=== PATIENT | male | born 1980 | race Caucasian/White ===

== ENCOUNTER 2017-06-12 05:55 | Observation (INO) | payer BC, OTHER ==
[2017-06-12] VITALS (10 sets, daily range): BP systolic 102–115; BP diastolic 66–77; PULSE 76–103; TEMP 36.9–37.9; O2SAT 87–94; Ht 182.9 cm; Wt 109.6 kg
[~2017-06-12] VITALS: Ht 182.9 cm; Wt 109.6 kg
[2017-06-12] MEDS ORDERED: HYDROmorphone INJ 1 MG/ML SYR IV STA (06:10)
[2017-06-12] MEDS ORDERED: ONDANSETRON INJ 2 MG/ML 2 ML VIAL IV STA (06:10)
[2017-06-12] MEDS ORDERED: SODIUM CHLORIDE 0.9% 1000ML 1,000 ML IV ONE ×2 (06:15→07:00)
[2017-06-12] MEDS ORDERED: SULF500T35 PO (06:32)
--- NOTE | 2017-06-12 06:34 | EMERGENCY ROOM VISIT NOTE ---
History First contact with patient: 06:03 Chief Complaint: ABDOMINAL PAIN Stated Complaint: SEVERE ABDOMINAL PAIN History of Present Illness The patient is a 37 year old male who presents to the Emergency Room with complaints of severe lower abdominal pain that he rates a 9/10. The patient reports a history of ulcerative colitis that has been well controlled. He started with some bloating and gassiness 2 or 3 days ago, however now he is having much more distinct pain. The patient states that he was sleeping in his bed, and the pain awoke him from sleep. The discomfort was initially just above the bellybutton and is now much worse in the lower abdomen and right lower quadrant. He has never had abdominal surgery in the past. He does not report fever, chills, chest pain, chest tightness, shortness of breath, nausea, or vomiting. He has not had blood in the stool or diarrhea. He did have a colonoscopy at [facility] a few months ago that was normal. The patient does not identify aggravating or alleviating factors. He is not taking anything over -the-counter for his discomfort. Review of Systems More than 10 systems were reviewed and otherwise negative with the exception of history of present illness. Past Medical/Surgical History History of ulcerative colitis Family History No pertinent family history Social History Smoking Status: Never Smoker Marital Status: Housing Status: lives with family Occupation Status: employed Current/Historical Medications Scheduled Sulfasalazine (Sulfazine Ec), Unknown Dose PO DAILY Physical Exam Vital Signs Date Time Temp Pulse Resp B/P (MAP) Pulse Ox O2 Delivery O2 Flow Rate FiO2 06/12/17 06:43 79 06/12/17 06:38 80 24 122/74 100 Room Air 06/12/17 06:35 106/77 06/12/17 06:25 68 100 Room Air 06/12/17 05:59 36.6 65 18 104/71 94 Room Air Physical Exam VITALS: Vitals are noted on the nurse's note and reviewed by myself. Vital signs stable. GENERAL: Well-developed, well-nourished, white male who appears in moderate to severe discomfort secondary to his stated complaint. HEART: Regular rate and rhythm without murmurs gallops or rubs. LUNGS: Clear to auscultation bilaterally without wheezes, rales or rhonchi. No retractions or accessory muscle use. ABDOMEN: Positive normal bowel sounds x 4. Soft with mild diffuse abdominal tenderness that is somewhat worsened in the suprapubic and right lower quadrant. No CVA tenderness. MUSCULOSKELETAL: No muscle atrophy, erythema, or edema noted. Full range of motion in all extremities. NEURO: Patient was alert and oriented to person place and time. CN II through XII grossly intact. SKIN: The skin was without rashes, erythema, edema, or bruising. Capillary refill less than 2 seconds. Medical Decision & Procedures Laboratory Results 06/12/17 06:27 Red Blood Count 5.79, Mean Corpuscular Volume 76.2, Mean Corpuscular Hemoglobin 26.4, Mean Corpuscular Hemoglobin Concent 34.7, Mean Platelet Volume 9.3, Neutrophils (%) (Auto) 84.6, Lymphocytes (%) (Auto) 9.8, Monocytes (%) (Auto) 4.4, Eosinophils (%) (Auto) 0.8, Basophils (%) (Auto) 0.2, Neutrophils # (Auto) 7.49, Lymphocytes # (Auto) 0.87, Monocytes # (Auto) 0.39, Eosinophils # (Auto) 0.07, Basophils # (Auto) 0.02 06/12/17 06:27 Test 06/12/17 06:05 06/12/17 06:27 06/12/17 06:31 Urine Color DK YELLOW Urine Appearance CLEAR (CLEAR) Urine pH 7.0 (4.5-7.5) Urine Specific [place] 1.031 (1.000-1.030) Urine Protein 1+ (NEG) Urine Glucose (UA) NEG (NEG) Urine Ketones TRACE (NEG) Urine Occult Blood NEG (NEG) Urine Nitrite POS (NEG) Urine Bilirubin NEG (NEG) Urine Urobilinogen NEG (NEG) Urine Leukocyte Esterase NEG (NEG) Urine WBC (Auto) 1-5 /hpf (0-5) Urine RBC (Auto) 0-4 /hpf (0-4) Urine Hyaline Casts (Auto) 1-5 /lpf (0-5) Urine Epithelial Cells (Auto) >30 /lpf (0-5) Urine Bacteria (Auto) NEG (NEG) Urine Renal Epithelial Cells 0-5 /lpf (0-5) Urine Pathogenic Casts 0-3 GRANULAR CASTS /lpf (0) White Blood Count 8.86 K/uL (4.8-10.8) Red Blood Count 5.79 M/uL (4.7-6.1) Hemoglobin 15.3 g/dL (14.0-18.0) Hematocrit 44.1 % (42-52) Mean Corpuscular Volume 76.2 fL (80-100) Mean Corpuscular Hemoglobin 26.4 pg (25-34) Mean Corpuscular Hemoglobin Concent 34.7 g/dl (32-36) Platelet Count 262 K/uL (130-400) Mean Platelet Volume 9.3 fL (7.4-10.4) Neutrophils (%) (Auto) 84.6 % Lymphocytes (%) (Auto) 9.8 % Monocytes (%) (Auto) 4.4 % Eosinophils (%) (Auto) 0.8 % Basophils (%) (Auto) 0.2 % Neutrophils # (Auto) 7.49 K/uL (1.4-6.5) Lymphocytes # (Auto) 0.87 K/uL (1.2-3.4) Monocytes # (Auto) 0.39 K/uL (0.11-0.59) Eosinophils # (Auto) 0.07 K/uL (0-0.5) Basophils # (Auto) 0.02 K/uL (0-0.2) RDW Standard Deviation 41.4 fL (36.4-46.3) RDW Coefficient of Variation 15.1 % (11.5-14.5) Immature Granulocyte % (Auto) 0.2 % Immature Granulocyte # (Auto) 0.02 K/uL (0.00-0.02) Erythrocyte Sedimentation Rate 14 mm/hr (0-14) Anion Gap 6.0 mmol/L (3-11) Est Creatinine Clear Calc Drug Dose 88.8 ml/min Estimated GFR () 70.1 Estimated GFR (Non- 60.5 BUN/Creatinine Ratio 8.6 (10-20) Calcium Level 9.7 mg/dl (8.5-10.1) Total Bilirubin 1.2 mg/dl (0.2-1) Aspartate Amino Transf (AST/SGOT) 18 U/L (15-37) Alanine Aminotransferase (ALT/SGPT) 47 U/L (12-78) Alkaline Phosphatase 94 U/L (45-117) C-Reactive Protein 3.31 mg/dl (0-0.29) Total Protein 8.5 gm/dl (6.4-8.2) Albumin 4.7 gm/dl (3.4-5.0) Globulin 3.8 gm/dl (2.5-4.0) Albumin/Globulin Ratio 1.2 (0.9-2) Lipase 52 U/L (73-393) Bedside Lactic Acid Venous 2.24 mmol/L (0.90-1.70) Medications Administered Medications (Trade) Dose Ordered Sig/Hima Route Start Time Stop Time Status Last Admin Dose Admin Hydromorphone HCl (Dilaudid Inj) 1 mg NOW STAT IV 06/12/17 06:10 06/12/17 06:13 DC 06/12/17 06:33 1 MG Sodium Chloride 1,000 ml @ 999 mls/hr Q1H1M ONCE IV 06/12/17 06:15 06/12/17 07:15 06/12/17 06:31 999 MLS/HR Ondansetron HCl (Zofran Inj) 4 mg NOW STAT IV 06/12/17 06:10 06/12/17 06:13 DC 06/12/17 06:31 4 MG Sodium Chloride 1,000 ml @ 999 mls/hr Q1H1M ONCE IV 06/12/17 07:00 06/12/17 08:00 06/12/17 06:52 999 MLS/HR ED Course Physical exam and history were performed. Nursing notes, EMR, and Medication List were personally reviewed. Patient appears to have abdominal pain that was initially minimal 2 or 3 days ago but is now much more severe and primarily in the lower abdomen. The patient appears quite uncomfortable on examination. IV access was established and labs are obtained. He was hydrated with normal saline and given 1 mg IV Dilaudid and 4 mg IV Zofran for comfort. He does have a history of ulcerative colitis and because of this I did elect perform CT scan with IV and oral contrast. The patient remained in stable condition until the time of shift change. At this time complete blood work and CT scan is pending. The case was discussed with Indio Hunter PA-C. Please see Mr. Hunter's dictation for further patient course, plan, and disposition. The chart was completed utilizing [employer] Voice Recognition Software. Grammatical errors, random word insertions, pronoun errors, and incomplete sentences are an occasional consequence of this system due to software limitations, ambient noise, and hardware issues. Any formal questions or concerns about the content, text, or information contained within the body of this dictation should be directly addressed to the provider for clarification. . Medical Decision Differential diagnosis: Etiologies such as appendicitis, diverticulitis, PUD, biliary pathology, UTI, pancreatitis, obstruction, mesenteric ischemia, aortic pathology, infections, inflammatory bowel disease, renal colic, as well as others were entertained. Impression Primary Impression: Abdominal pain Departure Information Referrals No Doctor, Assigned (PCP) Patient Instructions My [facility]
[2017-06-12 06:41] LABS: BASO % 0.2 %; BASO ABS # 0.02 K/uL (0-0.2); EOS % 0.8 %; EOS ABS # 0.07 K/uL (0-0.5); HEMATOCRIT 44.1 % (42-52); HEMOGLOBIN 15.3 g/dL (14.0-18.0); IG# 0.02 K/uL (0.00-0.02); LYMPH % 9.8 %; LYMPH ABS # 0.87 K/uL (1.2-3.4); MEAN CELL VOLUME 76.2 fL (80-100); MEAN CORPUSCULAR HEMOGLOBIN 26.4 pg (25-34); MEAN CORPUSCULAR HGB CONC 34.7 g/dl (32-36); MEAN PLATELET VOLUME 9.3 fL (7.4-10.4); MONO % 4.4 %; MONO ABS # 0.39 K/uL (0.11-0.59); NEUT % 84.6 %; NEUT ABS # 7.49 K/uL (1.4-6.5); PLATELET COUNT 262 K/uL (130-400); RED CELL DISTRIBUTION WIDTH CV 15.1 % (11.5-14.5); RED CELL DISTRIBUTION WIDTH SD 41.4 fL (36.4-46.3); WHITE BLOOD COUNT 8.86 K/uL (4.8-10.8)
[2017-06-12 06:59] LABS: ALBUMIN 4.7 gm/dl (3.4-5.0); CALCIUM 9.7 mg/dl (8.5-10.1); CREATININE 1.47 mg/dl (0.60-1.40); POTASSIUM 4.3 mmol/L (3.5-5.1)
[2017-06-12 07:02] LABS: TOTAL PROTEIN 8.5 gm/dl (6.4-8.2)
--- NOTE | 2017-06-12 09:17 | DIAGNOSTIC IMAGING REPORT ---
ABD/PELVIS IV AND ORAL CONT CT DOSE: 805.39 mGy.cm HISTORY: Pain abd pain. hx of ulcerative colitis TECHNIQUE: Multiaxial CT images of the abdomen and pelvis were performed following the use of intravenous and oral contrast. A dose lowering technique was utilized adhering to the principles of ALARA. COMPARISON STUDY: 08/24/2013 FINDINGS: Lung bases show minimal dependent basilar atelectasis. Liver spleen and pancreas appear unremarkable. Gallbladder is negative for distention. Kidneys enhance uniformly. Bowel pattern is nonobstructive. Medial and slightly inferior to the cecum is a distended appendix at 1.5 cm. There is moderate periappendiceal infiltrative change. Several small reactive regional nodes are present. There is no evidence for abscess or collection. This appearance is consistent with that of acute appendicitis. Bladder is midline. There are no contained bladder calcifications. There are several scattered sigmoid diverticuli. There is no evidence for acute diverticulitis. There is no free fluid within the pelvic cul-de-sac. IMPRESSION: 1. Acute appendicitis. 2. Distended appendix at 1.5 cm with moderate periappendiceal infiltrative change. 3. No evidence for abscess or collection. 4. Scattered colonic diverticuli with no evidence for acute diverticulitis. The above report was generated using voice recognition software. It may contain grammatical, syntax or spelling errors. Electronically signed by: Krish Varner M.D. 06/12/2017 9:16 AM Dictated Date/Time: 06/12/2017 9:06 AM
[2017-06-12] MEDS ORDERED: LACTATED RINGER'S 1000ML 1,000 ML IV SCH (09:45)
--- NOTE | 2017-06-12 09:55 | History and Physical ---
History & Physical Date & Time of Service: June 12, 2017 at 09:37 Chief Complaint: Severe Abdominal Pain Primary Care Physician: Philippe Vigil DO History of Present Illness 37 y/o male with upper abdominal pain, bloating after eating. Last night increased and localized to RLQ with nausea and chills. Has history of ulcerative colitis. Had 9mm appendix on CT for weight loss in 2013; f/u ultrasound was normal. UC has been well controlled on sulfasalazine. Has not had anything to eat or drink since yesterday. Past Medical/Surgical History Medical history: Ulcerative Colitis Surgical history: wisdom teeth Social History Smoking Status: Never Smoker Marital Status: Occupational Status: employed Allergies Coded Allergies: No Known Allergies (Unverified , 06/12/17) Home Medications Scheduled Sulfasalazine (Sulfazine Ec), Unknown Dose PO DAILY Review of Systems Constitutional: + fever, + chills Respiratory: + cough (recent URI/sinusitis treated with amoxil) Cardiovascular: No chest pain, No edema Abdomen: + pain, + nausea, No vomiting Physical Exam Vital Signs Date Time Temp Pulse Resp B/P (MAP) Pulse Ox O2 Delivery O2 Flow Rate FiO2 06/12/17 09:05 103 20 127/81 96 Room Air 06/12/17 07:16 87 20 116/73 95 Room Air 06/12/17 06:43 79 06/12/17 06:38 80 24 122/74 100 Room Air 06/12/17 06:35 106/77 06/12/17 06:25 68 100 Room Air 06/12/17 05:59 36.6 65 18 104/71 94 Room Air General Appearance: WD/WN, + mild distress ENT: normal ENT inspection Neck: supple Respiratory/Chest: lungs clear, normal breath sounds Cardiovascular: regular rate, rhythm, no edema Abdomen/GI: soft, + tenderness (localized RLQ), + guarding Extremities/Musculoskelatal: normal inspection Neurologic/Psych: alert, normal mood/affect, normal reflexes Diagnostics Laboratory Results Results Past 24 Hours Test 06/12/17 06:05 06/12/17 06:27 06/12/17 06:31 Range/Units Urine Color DK YELLOW Urine Appearance CLEAR CLEAR Urine pH 7.0 4.5-7.5 Urine Specific [place] 1.031 1.000-1.030 Urine Protein 1+ NEG Urine Glucose (UA) NEG NEG Urine Ketones TRACE NEG Urine Occult Blood NEG NEG Urine Nitrite POS NEG Urine Bilirubin NEG NEG Urine Urobilinogen NEG NEG Urine Leukocyte Esterase NEG NEG Urine WBC (Auto) 1-5 0-5 /hpf Urine RBC (Auto) 0-4 0-4 /hpf Urine Hyaline Casts (Auto) 1-5 0-5 /lpf Urine Epithelial Cells (Auto) >30 0-5 /lpf Urine Bacteria (Auto) NEG NEG Urine Renal Epithelial Cells 0-5 0-5 /lpf Urine Pathogenic Casts 0-3 GRANULAR CASTS 0 /lpf White Blood Count 8.86 4.8-10.8 K/uL Red Blood Count 5.79 4.7-6.1 M/uL Hemoglobin 15.3 14.0-18.0 g/dL Hematocrit 44.1 42-52 % Mean Corpuscular Volume 76.2 80-100 fL Mean Corpuscular Hemoglobin 26.4 25-34 pg Mean Corpuscular Hemoglobin Concent 34.7 32-36 g/dl Platelet Count 262 130-400 K/uL Mean Platelet Volume 9.3 7.4-10.4 fL Neutrophils (%) (Auto) 84.6 % Lymphocytes (%) (Auto) 9.8 % Monocytes (%) (Auto) 4.4 % Eosinophils (%) (Auto) 0.8 % Basophils (%) (Auto) 0.2 % Neutrophils # (Auto) 7.49 1.4-6.5 K/uL Lymphocytes # (Auto) 0.87 1.2-3.4 K/uL Monocytes # (Auto) 0.39 0.11-0.59 K/uL Eosinophils # (Auto) 0.07 0-0.5 K/uL Basophils # (Auto) 0.02 0-0.2 K/uL RDW Standard Deviation 41.4 36.4-46.3 fL RDW Coefficient of Variation 15.1 11.5-14.5 % Immature Granulocyte % (Auto) 0.2 % Immature Granulocyte # (Auto) 0.02 0.00-0.02 K/uL Erythrocyte Sedimentation Rate 14 0-14 mm/hr Sodium Level 135 136-145 mmol/L Potassium Level 4.3 3.5-5.1 mmol/L Chloride Level 104 98-107 mmol/L Carbon Dioxide Level 25 21-32 mmol/L Anion Gap 6.0 3-11 mmol/L Blood Urea Nitrogen 13 7-18 mg/dl Creatinine 1.47 0.60-1.40 mg/dl Est Creatinine Clear Calc Drug Dose 88.8 ml/min Estimated GFR () 70.1 Estimated GFR (Non- 60.5 BUN/Creatinine Ratio 8.6 10-20 Random Glucose 164 70-99 mg/dl Calcium Level 9.7 8.5-10.1 mg/dl Total Bilirubin 1.2 0.2-1 mg/dl Aspartate Amino Transf (AST/SGOT) 18 15-37 U/L Alanine Aminotransferase (ALT/SGPT) 47 12-78 U/L Alkaline Phosphatase 94 45-117 U/L C-Reactive Protein 3.31 0-0.29 mg/dl Total Protein 8.5 6.4-8.2 gm/dl Albumin 4.7 3.4-5.0 gm/dl Globulin 3.8 2.5-4.0 gm/dl Albumin/Globulin Ratio 1.2 0.9-2 Lipase 52 73-393 U/L Bedside Lactic Acid Venous 2.24 0.90-1.70 mmol/L Diagnostic Radiology ABD/PELVIS IV AND ORAL CONT CT DOSE: 805.39 mGy.cm HISTORY: Pain abd pain. hx of ulcerative colitis TECHNIQUE: Multiaxial CT images of the abdomen and pelvis were performed following the use of intravenous and oral contrast. A dose lowering technique was utilized adhering to the principles of ALARA. COMPARISON STUDY: 08/24/2013 FINDINGS: Lung bases show minimal dependent basilar atelectasis. Liver spleen and pancreas appear unremarkable. Gallbladder is negative for distention. Kidneys enhance uniformly. Bowel pattern is nonobstructive. Medial and slightly inferior to the cecum is a distended appendix at 1.5 cm. There is moderate periappendiceal infiltrative change. Several small reactive regional nodes are present. There is no evidence for abscess or collection. This appearance is consistent with that of acute appendicitis. Bladder is midline. There are no contained bladder calcifications. There are several scattered sigmoid diverticuli. There is no evidence for acute diverticulitis. There is no free fluid within the pelvic cul-de-sac. IMPRESSION: 1. Acute appendicitis. 2. Distended appendix at 1.5 cm with moderate periappendiceal infiltrative change. 3. No evidence for abscess or collection. 4. Scattered colonic diverticuli with no evidence for acute diverticulitis. The above report was generated using voice recognition software. It may contain grammatical, syntax or spelling errors. Electronically signed by: Krish Varner M.D. 06/12/2017 9:16 AM Dictated Date/Time: 06/12/2017 9:06 AM Impression Assessment and Plan Acute appendicitis Laparoscopic appendectomy this morning by Dr. Rodríguez. OR is available now , antibiotics will be given in the OR. Procedure and recovery were discussed including risks of bleeding, infection or abscess, injury to other structures and the possibility of converting to an open procedure.
--- NOTE | 2017-06-12 09:57 | EMERGENCY ROOM VISIT NOTE ---
ED Visit Note First contact with patient: 07:06 Patient case was signed out to me at 0700 hrs. on June 12, 2017 by TINY Jones pending CT scan and some of the metabolic labs. No concerning leukocytosis noted. Hypokalemia at 135. Creatinine high at 1.4. PSC lactic 2.24. Bili high at 1.2. Lipase low. Urine does reveal positive nitrites. He has had increased urinary frequency. Abdomen pelvis CT reveal acute appendicitis. I did discuss this with the on-call general surgery team. They will come to evaluate the patient.
[2017-06-12] MEDS ORDERED: PROPOFOL IV EMULSION 10 MG/ML 20 ML VIAL ONE (09:59)
[2017-06-12] MEDS ORDERED: ROCURONIUM BROMIDE 10 MG/ML 5 ML VIAL ONE (09:59)
[2017-06-12] MEDS ORDERED: MIDAZOLAM HCL 1 MG/ML 2ML VIAL ONE (09:59)
[2017-06-12] MEDS ORDERED: FENTANYL CITRATE INJ 50 MCG/1 ML 2 ML VIAL ONE (10:00)
--- NOTE | 2017-06-12 10:01 | History & Physical Bridge Note ---
H&P Re-Evaluation Bridge Note: I have examined the patient, reviewed the History & Physical and in the interval since the performance of the History & Physical I have noted the following changes of clinical significance: No changes notedpt examined SO at bedside, gets routine colonoscopy last one [place] 3 months ago neg for colitis, rebound and tenderness rlq loc acute appendicitis, r and c explainred to pt rec lap appy possible open all questions answered
[2017-06-12] MEDS ORDERED: LIDOCAINE/EPINEPHRINE 1% 20 ML VIAL ONE ×2 (10:10→10:26)
[2017-06-12] MEDS ORDERED: PHENYLEPHRINE 100MCG/ML 5ML SYR IV PRN (10:15)
[2017-06-12] MEDS ORDERED: EpHEDrine SULFATE INJ 50 MG/ML AMP IV PRN (10:15)
[2017-06-12] MEDS ORDERED: PROMETHAZINE HCL INJ 12.5 MG in SODIUM CHLORIDE 0.9% 50ML 50 ML IV PRN (10:15)
[2017-06-12] MEDS ORDERED: ONDANSETRON INJ 2 MG/ML 2 ML VIAL IV PRN ×2 (10:15→11:45)
[2017-06-12] MEDS ORDERED: LABETALOL HCL IV 5 MG/ML 20ML IV PRN (10:15)
[2017-06-12] MEDS ORDERED: ATROPINE SULFATE 0.1 MG/ML 5ML SYR IV PRN (10:15)
[2017-06-12] MEDS ORDERED: HYDROmorphone INJ 2 MG/ML SYR/VIAL IV PRN (10:15)
[2017-06-12] MEDS ORDERED: HYDROmorphone INJ 2 MG/ML SYR/VIAL ONE (10:52)
--- NOTE | 2017-06-12 11:31 | [facility] Post Operative Brief Note ---
Immediate Operative Summary Operative Date June 12, 2017. Pre-Operative Diagnosis Acute Appendicitis Post-Operative Diagnosis acute purulent appendicitis Procedure(s) Performed Laparoscopic Appendectomy Surgeon Dr. Fletcher Rodríguez Shotblast Operator Surgeon(s) Wes Farmer PA-C Estimated Blood Loss 8cc Findings See Below acute non grossly ruptured appendicitis Specimens PERMANENT: A.) Appendix and contents CULTURE: 1.) Drains 19 kaden per stab
[2017-06-12] MEDS ORDERED: MoRPHine SULFATE 4 MG/ML 1 ML CARP\\VIAL IV PRN (11:45)
[2017-06-12] MEDS ORDERED: ACETAMINOPHEN 325 MG TAB PO PRN (11:45)
[2017-06-12] MEDS ORDERED: OXYCODONE/ACETAMINOPHEN 5-325 TAB PO PRN (11:45)
[2017-06-12] MEDS ORDERED: DEXAMETHASONE SOD INJ 4 MG/ML VIAL ONE (12:11)
[2017-06-12] MEDS ORDERED: ONDANSETRON INJ 2 MG/ML 2 ML VIAL ONE (12:11)
[2017-06-12] MEDS: FENTANYL CITRATE INJ 50 MCG/1 ML 2 ML VIAL IV PRN ×2 (12:24→12:32)
--- NOTE | 2017-06-12 12:48 | Anesthesiology Progress Note ---
Anesthesia Post Op Note Date & Time June 12, 2017 at 12:48 Vital Signs Pain Intensity: 6.0 Vital Signs Past 12 Hours Date Time Temp Pulse Resp B/P (MAP) Pulse Ox O2 Delivery O2 Flow Rate FiO2 06/12/17 12:36 131/75 06/12/17 12:34 106 28 06/12/17 12:34 105 28 94 06/12/17 12:31 135/70 06/12/17 12:29 106 25 06/12/17 12:29 106 25 95 06/12/17 12:26 113/78 06/12/17 12:24 105 26 93 06/12/17 12:24 106 26 06/12/17 12:23 103 22 94 06/12/17 12:23 105 22 06/12/17 12:21 127/79 06/12/17 12:18 106 20 100 06/12/17 12:18 106 20 06/12/17 12:16 124/84 06/12/17 12:13 107 26 06/12/17 12:13 106 26 94 06/12/17 12:11 122/72 06/12/17 12:08 103 20 92 06/12/17 12:08 104 20 06/12/17 12:06 116/82 06/12/17 12:03 37 102 22 141/91 92 Oxymask 15 06/12/17 12:03 106 29 06/12/17 12:03 108 29 141/91 89 06/12/17 09:45 106 20 121/83 99 Room Air 06/12/17 09:05 103 20 127/81 96 Room Air 06/12/17 07:16 87 20 116/73 95 Room Air 06/12/17 06:43 79 06/12/17 06:38 80 24 122/74 100 Room Air 06/12/17 06:35 106/77 06/12/17 06:25 68 100 Room Air 06/12/17 05:59 36.6 65 18 104/71 94 Room Air Notes Mental Status: alert / awake / arousable, participated in evaluation Pt Amnestic to Procedure: Yes Nausea / Vomiting: adequately controlled Pain: adequately controlled Airway Patency, RR, SpO2: stable & adequate BP & HR: stable & adequate Hydration State: stable & adequate Anesthetic Complications: no major complications apparent
[2017-06-12] MEDS ORDERED: CEFOXITIN IV 2,000 MG in DEXTROSE 5% 50ML 50 ML IV ONE (13:00)
--- NOTE | 2017-06-12 13:11 | OPERATIVE REPORT ---
DATE OF OPERATION: 06/12/2017 SURGEON: Fletcher Rodríguez MD COMPUTER SECURITY SPECIALIST: Wes Farmer PA-C. PREOPERATIVE DIAGNOSIS: Acute appendicitis. POSTOPERATIVE DIAGNOSIS: Acute nonruptured grossly appendicitis with purulent peritonitis. PROCEDURE: Laparoscopic appendectomy. SUMMARY: The patient was brought into the operating room theater under general anesthesia, the patient's abdomen was prepped with Betadine solution and properly draped. Systemic antibiotics had been given. We made a small transverse incision about an inch above the umbilicus. The patient had a small umbilical hernia at the umbilical tissue. We left that alone. We stayed above it. CO2 was insufflated after the Veress needle followed by 5 mm trocar. Point of entry inspected and no injury identified. At this point, we placed the patient in left lateral position. We placed the camera locked into the abdomen, right lower quadrant and found what appeared to be some purulent fluid in the right gutter area. At this point under direct visualization, a 5 mm trocar was placed with direct visualization with preemptive analgesia 1% Xylocaine with epinephrine. We then placed a lighten strap and aspirated the peritoneal fluid. The purulent was then sent for cultures and sensitivity. At this point, we could see inflammatory changes down in the right lower quadrant distal to that appeared to have some fatty tissue adherent to the abdominal wall. I could not identify the appendix at this point. Under direct visualization then we changed the 5 mm epigastric port to an 11 mm by enlarging the peritoneal opening and then placed a 5 mm trocar, fpc between the symphysis pubis and the umbilical area since the patient was quite obese and that would give us a better view of the area. Once we had done this, we then manipulated and were able to identify the tip of the appendix, which markedly dilated and inflamed, held it up on the mesentery, which was grossly inflamed, did not see any tonia rupture of the appendix, although it was quite inflamed. We worked our way down to the base of the appendix used 5 mm clips to identify and clipped the artery and some other fatty tissue around the area. Once we were at the base of the appendix. We had created a window right at the cecal area. I used a purple load and we were able to elevate the appendix off the cecum. There was no gross appendiceal tissue left behind. The mesoappendix is still intact partially. We then clipped with 10 mm clips and divided and moved onto, we were able to completely taken off. The mesoappendix was checked for hemostasis. We cauterized what we saw right at the base paying attention not to go beyond that. The appendix was then placed in an Endopouch and taken out through the umbilical port. We had to enlarge the incision to get the appendix out, which was markedly inflamed and dilated. At this point, a 10 mm trocar was placed in the area again. We suctioned out the right gutter above the liver and all the way down the pelvic area multiple times using about 2 liters of solution. I elected to drain the area by placing a Chilo drain that we brought in towards the lower midline trocar site and placed in the right gutter all the way down towards the pelvic area under direct visualization. At this point, individual trocars removed and the last umbilical trocar removed. The drain came out through the right upper quadrant port site, attached to skin edge with 2-0 silk suture. The abdomen was checked for hemostasis and appeared satisfactory. Prior to closing and removing the trocars, we closed the umbilical trocar with [id number] nylon x2. Subcutaneous tissue brought back together with Dexon. Steri-Strips applied. The procedure was tolerated well by the patient. Estimated blood loss approximately 8-10 mL The patient was taken to recovery room in good condition. I attest to the content of the Intraoperative Record and any orders documented therein. Any exception s are noted below.
[2017-06-12] MEDS ORDERED: PIPERACILL/TAZOBAC CONSULT ACTIVE PRN (14:00)
[2017-06-12] MEDS ORDERED: PIPERACILL/TAZOBAC IV 3.375 GM in DEXTROSE 5% 100ML 100 ML IV SCH (14:00)
[2017-06-12] MEDS: LACTATED RINGER'S 1000ML 1,000 ML IV SCH ×3 (14:03→22:23)
[2017-06-12] MEDS: PIPERACILL/TAZOBAC IV 3.375 GM in DEXTROSE 5% 100ML 100 ML IV SCH (18:03)
[2017-06-12] MEDS: OXYCODONE/ACETAMINOPHEN 5-325 TAB PO PRN ×2 (19:04→23:37)
[2017-06-12] MEDS ORDERED: IV FLUIDS COMPLETED PRN (19:15)
[2017-06-13] MEDS: PIPERACILL/TAZOBAC IV 3.375 GM in DEXTROSE 5% 100ML 100 ML IV SCH ×2 (02:12→09:39)
[2017-06-13 03:14] VITALS: BP 117/77; PULSE 64; TEMP 36.8; O2SAT 95
[2017-06-13] MEDS: LACTATED RINGER'S 1000ML 1,000 ML IV SCH (04:29)
[2017-06-13] MEDS: OXYCODONE/ACETAMINOPHEN 5-325 TAB PO PRN (05:33)
[2017-06-13 05:54] VITALS: O2SAT 91
[2017-06-13 06:26] LABS: EOS % 0.5 %; EOS ABS # 0.03 K/uL (0-0.5); HEMATOCRIT 35.8 % (42-52); IG# 0.01 K/uL (0.00-0.02); LYMPH % 13.9 %; LYMPH ABS # 0.92 K/uL (1.2-3.4); MEAN CELL VOLUME 77.5 fL (80-100); MEAN CORPUSCULAR HGB CONC 33.5 g/dl (32-36); MEAN PLATELET VOLUME 8.8 fL (7.4-10.4); MONO % 8.9 %; MONO ABS # 0.59 K/uL (0.11-0.59); NEUT % 76.5 %; NEUT ABS # 5.06 K/uL (1.4-6.5); PLATELET COUNT 191 K/uL (130-400); RED CELL DISTRIBUTION WIDTH CV 15.4 % (11.5-14.5); RED CELL DISTRIBUTION WIDTH SD 43.6 fL (36.4-46.3); WHITE BLOOD COUNT 6.61 K/uL (4.8-10.8)
--- NOTE | 2017-06-13 06:32 | Discharge Instructions ---
Discharge Instructions Date of Service June 13, 2017. Admission Reason for Admission: Severe Abdominal Pain Discharge Discharge Diagnosis / Problem: Acute Appendicitis Discharge Goals Goal(s): Decrease discomfort, Improve function Activity Recommendations Activity Limitations: as noted below Lifting Limitations: no more than 10 pounds, until after follow-up appointment Exercise/Sports Limitations: until after follow-up appointment Shower/Bathe: tomorrow Driving or Machine Use: resume 3 days after discharge (Please do not drive while using narcotic pain medication) . Instructions / Follow-Up Instructions / Follow-Up You have been prescribed Percocet to take as needed for pain relief. Please use as directed. Follow-up with Dr. Rodríguez office next week for drain removal. Please contact our office at to schedule. Please contact our office with any further questions or concerns. [facility]. [address] [place] [address]. Current Hospital Diet Patient's current hospital diet: Full Liquid Diet Discharge Diet Recommended Diet: Regular Diet Procedures Procedures Performed: Laparoscopic Appendectomy Pending Studies Studies pending at discharge: yes List of pending studies: pathology Medical Emergencies . Who to Call and When: Medical Emergencies: If at any time you feel your situation is an emergency, please call 911 immediately. . Non-Emergent Contact Non-Emergency issues call your: Primary Care Provider, Surgeon Call Non-Emergent contact if: you have a fever, temperature is above 101.5, your pain is not controlled, your pain is worsening, wound has increased drainage, wound has increased redness . "Provider Documentation" section prepared by Philippe Green. . [place] Drug Monitoring Program Search Results: patient reviewed within database, no issues identified
[2017-06-13 06:33] LABS: INR 1.1 (0.9-1.1)
[2017-06-13] MEDS ORDERED: OXYC-57 PO (06:34)
[2017-06-13 07:00] LABS: CALCIUM 8.6 mg/dl (8.5-10.1); CREATININE 1.31 mg/dl (0.60-1.40); POTASSIUM 4.1 mmol/L (3.5-5.1)
[2017-06-13] MEDS ORDERED: HEPARIN SOD 5000 UNIT/0.5 ML CARP SQ SCH (07:00)
--- NOTE | 2017-06-13 07:01 | SURGERY PROGRESS NOTE ---
DATE: 06/13/2017 Juaquin is first postoperative day status post laparoscopic appendectomy. He is alert, coherent, and in no distress. He has minimal discomfort, but he has been taking analgesics every 6 hours. Intraoperative findings were discussed with the patient. His last vitals showed a temperature of 36.8, pulse 64, respirations 20, blood pressure 117/77, O2 sats 95 on 1 L. The lab is pending this morning. His I and O, he had 1225; Antonio-Scott drain uses about 130 and serous, slightly sanguineous. His abdomen is soft, distended but nontender. At this point, we will cut his IV fluids, encourage ambulation and subQ heparin and reevaluate him later today. If he is tolerating the diet and his pain is under control, then we were able to discharge him. I will send him home on Augmentin for approximately another 5 days and take the Chilo drain out in the office.
[2017-06-13 07:12] VITALS: BP 121/81; PULSE 65; TEMP 37; O2SAT 92
[2017-06-13] MEDS ORDERED: AMOX875T PO (07:40)
[2017-06-13 10:41] VITALS: BP 137/96; PULSE 76; TEMP 37.2; O2SAT 92
[2017-06-13 12:13] VITALS: BP 137/96; PULSE 76; TEMP 37.2; O2SAT 92
--- NOTE | 2017-06-13 19:00 | Discharge Summary ---
Discharge Summary Date of Service June 13, 2017. Admission Date/Reason June 12, 2017 at 11:41 Severe Abdominal Pain. Discharge Date/Disposition June 13, 2017 Home Diagnosis Principal Diagnosis: Acute Appendicitis Procedure(s) Performed Laparoscopic Appendectomy Medication Reconciliation Augmentin 875mg-125mg 1 Tablet PO BID x 5 days. Disp: 10 Tablets. Percocet 5mg/325mg 1-2 Tablets PO Q4H PRN for pain x 3 days. Disp: 30 Tablets. Admission Physical Exam As per Admitting History & Physical. Hospital Course 06/12/17: Patient is a 37M who developed abdominal pain and bloating after eating. Last night his pain inceased and localized to the RLQ with associated nausea and chills. Pt has a Hx of Ulcerative colitis which is currently well controlled on sulfasalazine. He has not had anything to eat or drink since yesterday. CT in the ED showed a 1.5 cm distended appendix with associated inflammatory changes suggesting acute appendicitis. At this time it was decided to take the patient to the OR this morning for Laparoscopic appendectomy. Risks , benefits alternatives to the procedure were discussed, consents signed. Pre- op antibiotics given. The procedure was performed successfully without complications. The appendix was very inflamed and dilated. A kaden drain was placed in the OR. The patient was then sent to the PACU for post-op recovery and then admitted to med/surg for post-op care. 06/13/17: POD #1. Doing well, minimal discomfort. Abdomen soft, distended but non- tender. MARCIA draining approx 130ml, serosang. Will cut IV fluids at this time. Encourage ambulation and continue subQ heparin. Diet was advanced throughout the day and patient was discharged in the afternoon once he was tolerating some foods. Drain left in place and patient will come into the general surgery clinic to have it taken out. Patient was given instructions on wound care, return precautions and limitations. He was sent home with a prescription for Percocet to take as needed for pain and a 5 day course of Augmentin for any residual infection. The patient was given instructions to follow-up with Dr. Rodríguez in the general surgery clinic. Discharge Instructions Please refer to the electronic Patient Visit Report (Discharge Instructions) for additional information.
--- NOTE | 2017-06-14 00:23 | DISCHARGE SUMMARY ---
PRIMARY DISCHARGE DIAGNOSIS: Acute nonruptured appendicitis with purulent peritonitis. SECONDARY DISCHARGE DIAGNOSIS: Ulcerative colitis. PROCEDURE PERFORMED: Laparoscopic appendectomy. HOSPITAL COURSE: The patient is a 37-year-old male who presented to the Emergency Department with complaint of 2 days upper abdominal pain localizing in the right lower quadrant overnight. He recently finished a course of amoxicillin for sinusitis. His white count was 8,000. He did have a left shift and a CT showing a 1.5 cm appendix with periappendiceal inflammatory changes consistent with appendicitis. He was taken to the operating room for laparoscopic appendectomy that morning. He did have purulent peritoneal fluid. A Chilo drain was placed in the pelvis. He was transferred to the surgical floor, continued on IV antibiotics overnight. On postoperative day 1, he was able to tolerate an advancing diet. His white count remained stable. He was afebrile. He was tolerating oral analgesics. Chilo drainage was 100 mL. His incisions were dry. He was stable for discharge on oral antibiotics. DISCHARGE INSTRUCTIONS: Discharged home. Follow up with Dr. Rodríguez's office in 4 days for removal of the drain. DISCHARGE MEDICATIONS: Augmentin 875 mg p.o. b.i.d. x5, Percocet 1-2 tablets every 4 hours as needed. Continue home sulfasalazine daily.
--- NOTE | 2017-06-18 16:51 | Pharmacy Progress Note ---
ED Pharmacist Culture FollowUp Date of Service: June 18, 2017. Call made to charge nurse regarding change in organism previously reported as gram negative bacilli to Eggerthella lenta in peritoneal fluid. Also growing pearl -sensitive E. coli and H. parainfluenze. Patient has drain and is to follow up with Dr. Rodríguez's office. Patient was prescribed Augmentin on discharge which would cover bacteria that are growing. Discussed with Dr. Garay, surgery should be notified of results. Office closed for today. Will follow-up on 06/19.
== END 2017-06-13 13:23 | disposition home or self-care (01) ==
LOC: C.EDB 05:55 → C.MSW 11:41 → ENRESERV 12:36
PROVIDERS: ADMIT Surgery; ATTEND Surgery
DX: K35.3 Acute appendicitis with localized peritonitis (principal); Z88.2 Allergy status to sulfonamides; Z79.899 Other long term (current) drug therapy